=== PATIENT | female | born 1960 | race Caucasian/White ===

== ENCOUNTER 2018-01-04 16:14 | Inpatient (IN) | payer OTHER ==
[~2018-01-04] VITALS: Ht 160 cm; Wt 146.0 kg
[2018-01-04 17:44] LABS: BASOPHIL % 0.3 % (0-2); PLATELET COUNT 278 x10^3mcL (130-400); RED CELL DISTRIBUTION WIDTH 13.4 % (11.5-14.5)
[2018-01-04 17:55] LABS: CALCIUM 8.5 mg/dL (8.5-10.1); CARBON DIOXIDE 28.3 mmol/L (21-32); CREATININE SERUM 1.1 mg/dL (0.6-1.0); POTASSIUM SERUM 3.6 mmol/L (3.5-5.1)
[2018-01-04 18:00] LABS: BILIRUBIN TOTAL 0.39 mg/dL (0.20-1.00); TOTAL PROTEIN, SERUM 8.1 g/dL (6.4-8.2)
[2018-01-04 18:01] LABS: ALBUMIN 3.3 g/dL (3.4-5.0)
[2018-01-04] MEDS ORDERED: FUROSEMIDE20 MG PO (19:21)
[2018-01-04] MEDS ORDERED: LEVOTHYROXINE0.05 M2 PO (19:21)
[2018-01-04] MEDS ORDERED: GOOD SENSE OMEP20 MG PO (19:21)
[2018-01-04] MEDS ORDERED: ALPRAZOLAM0.25 MG PO (19:22)
[2018-01-04] MEDS ORDERED: CURCUMIN95% (19:22)
[2018-01-04] MEDS ORDERED: CITALOPRAM HYDR20 M1 PO (19:22)
[2018-01-04] MEDS ORDERED: TRAMADOL HCL50 MG PO (19:22)
[2018-01-04 19:56] LABS: MAGNESIUM 1.9 mg/dL (1.8-2.4); PHOSPHOROUS 3.9 mg/dL (2.5-4.9)
[2018-01-04 19:59] LABS: CHOLESTEROL/HDL RATIO 2.8
[2018-01-04 20:04] LABS: T3 TOTAL 1.14 ng/mL
[2018-01-04 20:06] LABS: FREE T4 1.09 ng/dL (0.76-1.46); FREE THYROXINE INDEX 3.1 ug/dL (1.4-4.5); T4(THYROXINE) 9.7 ug/dL (4.7-13.3)
[2018-01-04 20:17] VITALS: BP 102/52
[2018-01-04 20:44] VITALS: BP 102/52
[2018-01-05 00:39] LABS: microscopic required? YES; urine erythrocyte TRACE (NEGATIVE)
[2018-01-05 00:54] LABS: AMPHETAMINE QUAL UR NONE DETECTED (See below)
[2018-01-05 01:54] VITALS: Ht 160 cm; Wt 146.0 kg
[2018-01-05 05:44] VITALS: BP 113/46
[2018-01-05 08:39] VITALS: BP 115/40
[2018-01-05 09:51] LABS: PLATELET COUNT 253 x10^3mcL (130-400); RED CELL DISTRIBUTION WIDTH 12.8 % (11.5-14.5)
[2018-01-05 10:01] LABS: BASOPHIL % 3.4 % (0-2)
[2018-01-05 10:06] LABS: CALCIUM 8.3 mg/dL (8.5-10.1); CARBON DIOXIDE 23.1 mmol/L (21-32); CHLORIDE SERUM 107 mmol/L (98-107); CREATININE SERUM 0.7 mg/dL (0.6-1.0); GFR1 > 60 mL/min; GLUCOSE SERUM 104 mg/dL (74-106); MAGNESIUM 2.4 mg/dL (1.8-2.4); PHOSPHOROUS 4.2 mg/dL (2.5-4.9); SODIUM SERUM 140 mmol/L (136-145)
[2018-01-05 12:15] VITALS: BP 128/47
[2018-01-05 16:26] VITALS: BP 131/54
[2018-01-05 21:46] VITALS: BP 135/50
[2018-01-06 04:56] VITALS: BP 137/70
[2018-01-06 07:14] LABS: BASOPHIL % 0.6 % (0-2); PLATELET COUNT 229 x10^3mcL (130-400); RED CELL DISTRIBUTION WIDTH 13.9 % (11.5-14.5)
[2018-01-06 07:44] LABS: CALCIUM 8.3 mg/dL (8.5-10.1); CARBON DIOXIDE 26.7 mmol/L (21-32); CHLORIDE SERUM 107 mmol/L (98-107); CREATININE SERUM 0.7 mg/dL (0.6-1.0); GFR1 > 60 mL/min; GLUCOSE SERUM 95 mg/dL (74-106); POTASSIUM SERUM 3.5 mmol/L (3.5-5.1); SODIUM SERUM 141 mmol/L (136-145)
[2018-01-06 08:04] VITALS: BP 117/54
[2018-01-06] MEDS ORDERED: HYD2.5C TOP (11:43)
[2018-01-06] MEDS ORDERED: BEN25 PO (11:43)
[2018-01-06] MEDS ORDERED: LEVAQUIN750 MG PO (11:44)
[2018-01-06 11:59] VITALS: BP 114/79
[2018-01-06 13:12] VITALS: BP 114/79
== END 2018-01-06 14:45 | disposition home or self-care (01) | DRG 383 ==
LOC: ED 16:14 → DU 19:18 → EDBEDREQSVC 19:32 → DU 19:55
PROVIDERS: Emergency Medicine; Family Medicine
DX: L03.114 Cellulitis of left upper limb (principal); N17.0 Acute kidney failure with tubular necrosis; L03.116 Cellulitis of left lower limb; S60.562A Insect bite (nonvenomous) of left hand, initial encounter; E44.1 Mild protein-calorie malnutrition; Z68.43 Body mass index [BMI] 50.0-59.9, adult; E03.9 Hypothyroidism, unspecified; E78.5 Hyperlipidemia, unspecified; M19.90 Unspecified osteoarthritis, unspecified site; F41.9 Anxiety disorder, unspecified; F32.9 Major depressive disorder, single episode, unspecified; W57.XXXA Bitten or stung by nonvenomous insect and other nonvenomous arthropods, initial encounter; N39.0 Urinary tract infection, site not specified; E66.9 Obesity, unspecified; Z87.891 Personal history of nicotine dependence; Z88.0 Allergy status to penicillin; Z98.891 History of uterine scar from previous surgery; Z80.3 Family history of malignant neoplasm of breast; Z83.3 Family history of diabetes mellitus; Y93.89 Activity, other specified; Y92.89 Other specified places as the place of occurrence of the external cause
CPT/HCPCS: 84439; J1644; J1956; J2060; J2270; J3370; J7030; Q0092; Q0163

== ENCOUNTER 2018-03-13 09:05 | Emergency (ER) | payer OTHER ==
[~2018-03-13] VITALS: Ht 160 cm; Wt 149.7 kg
[~2018-03-13 09:05] MED LIST: ALPRAZOLAM0.25 MG PO; BEN25 PO; CITALOPRAM HYDR20 M1 PO; CURCUMIN95%; FUROSEMIDE20 MG PO; GOOD SENSE OMEP20 MG PO; HYD2.5C TOP; LEVAQUIN750 MG PO; LEVOTHYROXINE0.05 M2 PO; TRAMADOL HCL50 MG PO
[2018-03-13 09:21] VITALS: Ht 160 cm; Wt 149.7 kg
[2018-03-13 09:54] LABS: BASOPHIL % 0.6 % (0-2); PLATELET COUNT 241 x10^3mcL (130-400); RED CELL DISTRIBUTION WIDTH 13.8 % (11.5-14.5)
[2018-03-13 10:16] LABS: CALCIUM 9.4 mg/dL (8.5-10.1); CARBON DIOXIDE 25.2 mmol/L (21-32); CHLORIDE SERUM 103 mmol/L (98-107); CREATININE SERUM 0.8 mg/dL (0.6-1.0); GFR1 > 60 mL/min; GLUCOSE SERUM 105 mg/dL (74-106); POTASSIUM SERUM 3.5 mmol/L (3.5-5.1); SODIUM SERUM 141 mmol/L (136-145)
[2018-03-13 10:21] LABS: ALBUMIN 3.5 g/dL (3.4-5.0); ALKALINE PHOSPHATASE 70 U/L (46-116); ALT/SGPT 39 U/L (14-59); AST/SGOT 36 U/L (15-37); BILIRUBIN TOTAL 0.6 mg/dL (0.20-1.00); TOTAL PROTEIN, SERUM 7.9 g/dL (6.4-8.2)
[2018-03-13 15:51] VITALS: BP 133/76
== END 2018-03-13 15:51 | disposition home or self-care (01) ==
LOC: ED 09:05
PROVIDERS: Emergency Medicine
DX: E86.0 Dehydration (principal); R42 Dizziness and giddiness; F41.9 Anxiety disorder, unspecified; M19.90 Unspecified osteoarthritis, unspecified site; E03.9 Hypothyroidism, unspecified; Z88.0 Allergy status to penicillin
CPT/HCPCS: 82962; J2405; J7030; J8597

== ENCOUNTER 2018-09-06 19:05 | Emergency (ER) | payer OTHER ==
[~2018-09-06] VITALS: Ht 160 cm; Wt 117.9 kg
[2018-09-06 19:15] VITALS: Ht 160 cm; Wt 117.9 kg
[2018-09-06 20:40] LABS: BASOPHIL % 0.4 % (0-2); PLATELET COUNT 228 x10^3mcL (130-400); RED CELL DISTRIBUTION WIDTH 15.8 % (11.5-14.5)
[2018-09-06 20:47] LABS: CALCIUM 10.1 mg/dL (8.5-10.1); CARBON DIOXIDE 21.4 mmol/L (21-32); CHLORIDE SERUM 110 mmol/L (98-107); CREATININE SERUM 0.8 mg/dL (0.6-1.0); GFR1 > 60 mL/min; GLUCOSE SERUM 118 mg/dL (74-106); POTASSIUM SERUM 3.6 mmol/L (3.5-5.1); SODIUM SERUM 144 mmol/L (136-145)
[2018-09-06 20:52] LABS: ALBUMIN 3.6 g/dL (3.4-5.0); ALKALINE PHOSPHATASE 81 U/L (46-116); ALT/SGPT 20 U/L (14-59); AST/SGOT 17 U/L (15-37); LIPASE 56 IU/L (73-393)
[2018-09-06 21:04] LABS: TOTAL PROTEIN, SERUM 8.4 g/dL (6.4-8.2)
[2018-09-07 00:46] LABS: microscopic required? YES; urine erythrocyte NEGATIVE (NEGATIVE)
[2018-09-07 00:58] VITALS: BP 121/61
== END 2018-09-07 00:58 | disposition home or self-care (01) ==
LOC: ED 19:05
PROVIDERS: Emergency Medicine
DX: K59.00 Constipation, unspecified (principal); E03.9 Hypothyroidism, unspecified; F41.9 Anxiety disorder, unspecified; E66.9 Obesity, unspecified; Z98.84 Bariatric surgery status; Z88.0 Allergy status to penicillin
CPT/HCPCS: 36415; J1885; J3010; Q0162

== ENCOUNTER 2019-08-26 20:32 | Emergency (ER) | payer OTHER, SELFPAY ==
[~2019-08-26] VITALS: Ht 160 cm; Wt 88.5 kg
[2019-08-26 21:29] VITALS: Ht 160 cm; Wt 88.5 kg
[2019-08-26 22:30] LABS: BASOPHIL % 0.4 % (0-2); PLATELET COUNT 196 x10^3mcL (130-400); RED CELL DISTRIBUTION WIDTH 13.4 % (11.5-14.5)
[2019-08-26 22:45] LABS: CALCIUM 9.2 mg/dL (8.5-10.1); CARBON DIOXIDE 30.5 mmol/L (21-32); CHLORIDE SERUM 102 mmol/L (98-107); CREATININE SERUM 0.9 mg/dL (0.6-1.0); GFR1 > 60 mL/min; GLUCOSE SERUM 90 mg/dL (74-106); POTASSIUM SERUM 4.9 mmol/L (3.5-5.1); SODIUM SERUM 141 mmol/L (136-145)
[2019-08-26 22:50] LABS: ALBUMIN 3.8 g/dL (3.4-5.0); ALKALINE PHOSPHATASE 82 U/L (46-116); ALT/SGPT 21 U/L (14-59); AST/SGOT 23 U/L (15-37); BILIRUBIN TOTAL 0.5 mg/dL (0.20-1.00); TOTAL PROTEIN, SERUM 7.8 g/dL (6.4-8.2)
[2019-08-26 23:30] VITALS: BP 166/55
== END 2019-08-26 23:30 | disposition home or self-care (01) ==
LOC: ED 20:32
PROVIDERS: Emergency Medicine
DX: U07.1 COVID-19 (principal); B34.9 Viral infection, unspecified; M79.602 Pain in left arm; M19.90 Unspecified osteoarthritis, unspecified site; E03.9 Hypothyroidism, unspecified; Z88.0 Allergy status to penicillin; Z98.890 Other specified postprocedural states
CPT/HCPCS: 36415; Q0092; Q0162; U0003-CS